=== PATIENT | male | born 1975 | race American Indian/Alaskan Native ===

== ENCOUNTER 2020-04-10 15:27 | Outpatient (CLI) | payer OTHER | END 2020-04-10 15:41 | disposition home or self-care (01) | LOC: RAD 15:27 | DX: R07.89 Other chest pain (principal) ==

== ENCOUNTER 2021-04-25 13:18 | Outpatient (CLI) | payer OTHER | END 2021-04-25 13:29 | disposition home or self-care (01) | LOC: EKG 13:18 | DX: R00.8 Other abnormalities of heart beat (principal); L98.8 Other specified disorders of the skin and subcutaneous tissue ==